=== PATIENT | female | born 2000 | race Hispanic/Latino ===

== ENCOUNTER 2019-03-09 15:40 | Emergency (ER) | payer MEDICAID, OTHER ==
[2019-03-09] MEDS ORDERED: ACETAMINOPHEN 325 MG TAB ONE (15:59)
[2019-03-09 16:23] LABS: RAPID GROUP A STREP NEGATIVE (NEGATIVE)
[2019-03-09 16:25] LABS: APPEARANCE,URINE Clear (CLEAR); BILIRUBIN,URINE Negative (NEGATIVE); COLOR,URINE Yellow (YELLOW); GLUCOSE, URINE (UA) Negative (NEGATIVE); KETONES,URINE >=80 mg/dL (NEGATIVE); LEUKOCYTE ESTERASE ,URINE Moderate (NEGATIVE); NITRATE,URINE Negative (NEGATIVE); OCCULT BLOOD,URINE Moderate (NEGATIVE); PROTEIN,URINE POS 1+ mg/dL (NEGATIVE)
[2019-03-09] MEDS ORDERED: IPRATROPIUM/ALBUTEROL SULFATE 3 ML SOLUTION IH ONE (16:34)
[2019-03-09 16:48] LABS: BACTERIA,URINE Few /HPF (None Seen); MUCUS,URINE Few LPF (None Seen); SQUAMOUS EPITHELIAL CELL,UR Few /HPF (0-2)
[2019-03-09 16:54] LABS: HCG,QUAL RESULT NEGATIVE (NEGATIVE)
[2019-03-09] MEDS ORDERED: IBUPROFEN 200 MG TAB ONE (17:21)
[2019-03-09 17:32] LABS: AMPHET/METH SCREEN,URINE NEGATIVE (NEGATIVE); BARBITURATE SCREEN, URINE NEGATIVE (NEGATIVE); BENZODIAZEPINES SCREEN,URINE NEGATIVE (NEGATIVE); CANNABINOID SCREEN,URINE POSITIVE (NEGATIVE); COCAINE SCREEN,URINE NEGATIVE (NEGATIVE); OPIATE SCREEN,URINE NEGATIVE (NEGATIVE); PHENCYCLIDINE SCREEN,URINE NEGATIVE (NEGATIVE)
[2019-03-09] MEDS ORDERED: LIDOCAINE HCL-MPF 1% 2ML VIAL ONE (18:07)
[2019-03-09] MEDS ORDERED: PREDNISONE 20 MG TABLET ONE (18:07)
[2019-03-09] MEDS ORDERED: CEFTRIAXONE SODIUM 1 GM ONE (18:07)
[2019-03-09 18:31] LABS: BASOPHILS % (AUTO) 0.1 % (0.0-5.0); HEMATOCRIT 39.5 % (36-48); LYMPHOCYTES % (AUTO) 5.7 % (21.0-51.0); MEAN CORPUSCULAR HEMOGLOBIN 30.5 pg (27.0-33.0); MEAN CORPUSCULAR HGB CONC 34.5 g/dL (32.0-36.0); MEAN CORPUSCULAR VOLUME 88.5 fL (80-100); MONOCYTES % (AUTO) 4.5 % (3.0-13.0); NEUTROPHILS % (AUTO) 89.7 % (40.0-77.0); PLATELET COUNT (AUTO) 129 K/uL (130-400); RED BLOOD CELL COUNT(AUTO) 4.46 MIL/uL (4.00-5.50); RED CELL DISTRIBUTION WIDTH 13.6 % (11.0-15.5); WHITE BLOOD COUNT (AUTO) 10.7 K/uL (4.8-10.8)
[2019-03-09 18:55] LABS: BILIRUBIN,TOTAL 0.4 mg/dL (0.2-1.0); CREATININE 0.6 mg/dL (0.5-1.5); THYROID STIMULATING HORMONE 0.39 uIU/mL (0.36-3.74); TOTAL PROTEIN, SERUM 7.4 g/dL (6.0-8.3)
[2019-03-09 19:17] LABS: POTASSIUM 2.9 mmol/L (3.5-5.1)
[2019-03-09] MEDS ORDERED: POTASSIUM CHLORIDE 20 MEQ ERTAB PO ONE (20:05)
== END 2019-03-09 20:42 | disposition home or self-care (01) ==
LOC: EDH 15:40
DX: E86.0 Dehydration (principal); E87.6 Hypokalemia
CPT/HCPCS: 36415; 71046; 80053; 80305; 81001; 81025; 82550; 84443; 84484; 85025; 87804 ×2; 87880; 93005; 94640; 96360; 96361; 96372; 99284; J0696; J3490

== ENCOUNTER 2022-03-16 15:18 | Emergency (ER) | payer MEDICAID ==
[~2022-03-16] VITALS: Ht 160 cm; Wt 73.5 kg
[2022-03-16 15:47] LABS: BASOPHILS % (AUTO) 0.3 % (0.0-5.0); EOSINOPHILS % (AUTO) 0.5 % (0.0-8.0); HEMATOCRIT 38.5 % (36-48); LYMPHOCYTES % (AUTO) 20.5 % (21.0-51.0); MEAN CORPUSCULAR HEMOGLOBIN 29.9 pg (27.0-33.0); MEAN CORPUSCULAR HGB CONC 35.3 g/dL (32.0-36.0); MEAN CORPUSCULAR VOLUME 84.6 fL (79-99); MONOCYTES % (AUTO) 5.3 % (3.0-13.0); NEUTROPHILS % (AUTO) 73.1 % (40.0-77.0); PLATELET COUNT (AUTO) 251 K/uL (130-400); RED BLOOD CELL COUNT(AUTO) 4.55 MIL/uL (4.00-5.50); RED CELL DISTRIBUTION WIDTH 12.2 % (11.0-15.5); WHITE BLOOD COUNT (AUTO) 8.8 K/uL (4.8-10.8)
[2022-03-16 15:49] LABS: APPEARANCE,URINE Cloudy (CLEAR); BILIRUBIN,URINE Negative (NEGATIVE); COLOR,URINE Dark Yellow (YELLOW); GLUCOSE, URINE (UA) Negative (NEGATIVE); KETONES,URINE >=160 mg/dL (NEGATIVE); LEUKOCYTE ESTERASE ,URINE Moderate (NEGATIVE); NITRATE,URINE Negative (NEGATIVE); OCCULT BLOOD,URINE Small (NEGATIVE); PROTEIN,URINE POS 1+ mg/dL (NEGATIVE)
[2022-03-16 15:57] LABS: BACTERIA,URINE Few /HPF (None Seen); MUCUS,URINE Moderate LPF (None Seen); SQUAMOUS EPITHELIAL CELL,UR Moderate /HPF (0-2)
[2022-03-16 15:57] LABS: CREATININE 0.5 mg/dL (0.5-1.5); POTASSIUM 3.4 mmol/L (3.5-5.1)
[2022-03-16] MEDS ORDERED: LACTATED RINGERS 1000ML IV SCH (16:00)
[2022-03-16] MEDS ORDERED: PROMETHAZINE HCL 25 MG/ML 1ML AMPULE IM ONE (16:00)
[2022-03-16] MEDS ORDERED: CEFTRIAXONE 1G VIAL ONE (16:10)
[2022-03-16] MEDS ORDERED: POTASSIUM BICARB/CIT AC 25 MEQ TABLET.EFF ONE (16:10)
[2022-03-16 16:16] VITALS: BP 123/75
[2022-03-16 16:23] LABS: ALBUMIN 4.1 g/dL (3.5-5.0); BILIRUBIN,TOTAL 0.6 mg/dL (0.2-1.0); TOTAL PROTEIN, SERUM 7.7 g/dL (6.0-8.3)
[2022-03-16] MEDS ORDERED: PHEN12S PR (16:28)
[2022-03-16] MEDS ORDERED: ONDA4TAB10 PO (16:28)
[2022-03-16] MEDS ORDERED: CEPH500B PO (16:28)
[2022-03-16] MEDS ORDERED: POTASSIUM BICARB/CIT AC 25 MEQ TABLET.EFF PO ONE (16:30)
[2022-03-16] MEDS ORDERED: CEFTRIAXONE 1G VIAL IVP ONE (16:30)
== END 2022-03-16 16:54 | disposition home or self-care (01) ==
LOC: EDH 15:18
DX: O23.41 Unspecified infection of urinary tract in pregnancy, first trimester (principal); N39.0 Urinary tract infection, site not specified; O21.0 Mild hyperemesis gravidarum; O26.51 Maternal hypotension syndrome, first trimester; E87.6 Hypokalemia; Z20.822 Contact with and (suspected) exposure to COVID-19; Z3A.01 Less than 8 weeks gestation of pregnancy
CPT/HCPCS: 36415; 80053; 81001; 83605; 84702; 85025; 87077; 87088; 87186; 87635; 87804 ×2; 96372; 96374; 99284; C9803; J0696; J2550; J7120

== ENCOUNTER 2022-09-15 17:50 | Emergency (ER) | payer MEDICAID ==
[~2022-09-15] VITALS: Ht 160 cm; Wt 80.7 kg
[~2022-09-15 17:50] MED LIST: CEPH500B PO; ONDA4TAB10 PO; PHEN12S PR
[2022-09-15 17:51] VITALS: BP 121/58
[2022-09-15] MEDS ORDERED: ACET-2247 PO (18:59)
[2022-09-15] MEDS ORDERED: ACETAMINOPHEN 500 MG TABLET PO ONE (19:00)
== END 2022-09-15 19:11 | disposition home or self-care (01) ==
LOC: EDH 17:50
DX: J06.9 Acute upper respiratory infection, unspecified (principal); Z20.822 Contact with and (suspected) exposure to COVID-19; Z79.899 Other long term (current) drug therapy
CPT/HCPCS: 99283; 87635; 87880; 87804 ×2; C9803

== ENCOUNTER 2023-07-20 12:22 | Emergency (ER) | payer MEDICAID ==
[~2023-07-20] VITALS: Ht 160 cm; Wt 74.8 kg
[~2023-07-20 12:22] MED LIST changes: -CEPH500B PO; -ONDA4TAB10 PO; -PHEN12S PR; +PREN-154 PO
[2023-07-20] MEDS ORDERED: IBUPROFEN 600 MG TABLET PO ONE (13:00)
[2023-07-20 13:31] VITALS: BP 109/61; PULSE 75; RESP 16; O2SAT 100
[2023-07-20] MEDS ORDERED: IBUP-2070 PO (14:38)
== END 2023-07-20 15:43 | disposition home or self-care (01) ==
LOC: EDH 12:22
DX: S93.402A Sprain of unspecified ligament of left ankle, initial encounter (principal); E66.9 Obesity, unspecified; Z68.29 Body mass index [BMI] 29.0-29.9, adult; X50.1XXA Overexertion from prolonged static or awkward postures, initial encounter; Y93.89 Activity, other specified; Y92.89 Other specified places as the place of occurrence of the external cause; Y99.8 Other external cause status
CPT/HCPCS: 73610; 73630